=== PATIENT | male | born 1945 | race Caucasian/White ===

== ENCOUNTER 2017-06-10 09:47 | Day surgery (SDC) | payer OTHER, MEDICARE ==
[2017-06-10] MEDS ORDERED: LIDOCAINE 1% 300 MG/30 ML SDV SC ONE (09:52)
--- NOTE | 2017-06-10 10:49 | PDGENHP ---
History & Physical Chief Complaint: [employer] Linq at end of battery life History of Present Illness: 71 year old gentleman with hx of syncope who underwent LINQ implant which is now at end of battery life. Pertinent Past, Social, Family History: hx of seizure disorder , cad and hyperlipdemia Relevant Physical Exam: awake, alert, appropriate Cardiorespiratory Assessment: rrr
--- NOTE | 2017-06-10 11:54 | CPIP ---
[f rep st] INVASIVE CARDIAC PROCEDURE DATE OF PROCEDURE: 06/10/2017 PROCEDURE PERFORMED: [employer] implantable loop recorder, LINQ device removal. INDICATION: End of battery life. INDICATION FOR IMPLANT: Syncope. The patient is a pleasant 72-year-old gentleman who underwent LINQ implantation secondary to a histor y of syncope. His device is now at end of battery life. He presents today for LINQ removal. He has opted not to receive sedation. He is agreeable to local anesthesia with lidocaine. He is agreeable for IV insertion prior to the onset of the procedure. After informed consent was obtained, he was prepped and draped in a sterile fashion. Using 1% lidoca ine, his skin was anesthetized. Once appropriate level of local anesthesia on his skin surface was o btained, incision was made with scalpel blade. The device was removed with pressure. Hemostasis was achieved. Steri-Strips were applied, and the patient tolerated the procedure well. There were no p ostoperative complications. PLAN: 1. Patient will be discharged home this morning. 2. The patient has been given postoperative instructions, particularly to avoid exercise for the nex t 1 week and avoid showering for the next 48 hours. He is scheduled to return to our office in 1 week for a nurse visit on Friday, June 16, 2017, a t 10 a.m. /[id number]/MODL
== END 2017-06-10 11:30 | disposition home or self-care (01) ==
LOC: FCATH 09:47
PROVIDERS: ATTEND Internal Medicine Cardiovascular Disease
PROC: 0JPT02Z Removal of Monitoring Device from Trunk Subcutaneous Tissue and Fascia, Open Approach (ICD-10-PCS; principal; 2017-06-10)
DX: Z45.09 Encounter for adjustment and management of other cardiac device (principal); R55 Syncope and collapse; G40.909 Epilepsy, unspecified, not intractable, without status epilepticus; I25.10 Atherosclerotic heart disease of native coronary artery without angina pectoris; E78.5 Hyperlipidemia, unspecified